=== PATIENT | female | born 1950 | race Caucasian/White ===

== ENCOUNTER 2019-03-05 15:56 | Emergency (ER) | payer MEDICARE, BC ==
[~2019-03-05] VITALS: Ht 162.6 cm; Wt 54.4 kg
--- NOTE | 2019-03-05 16:02 | Emergency Room Report ---
History of Present Illness General Chief Complaint: Altered Mental Status Source: Patient (Oscar Flores MD) Present Illness HPI Patient is a 69-year-old female who presented after increased generalized feeling bad. Patient cannot exactly state in what way she feels bad other than she feels somewhat depressed. She denies any current plan. She states that she had been having some prior lung disease and is currently a smoker. She denies any prior cardiac condition but states that she has been concerned that her heart is bad. She was able to walk approximately 3 miles earlier today.She states that she has been feeling sore all over.She states that she is disoriented (Oscar Flores MD) Allergies: Coded Allergies: UNABLE TO ASSESS (Unverified , 03/05/19) Patient History Past Medical History: see triage record Reviewed Nursing Documentation: PMH: Agreed; PSxH: Agreed (Oscar Flores MD) Nursing Documentation-PMH Past Medical History: Deferred (Oscar Flores MD) Review of Systems All Other Systems: negative except mentioned in HPI (Oscar Flores MD) Physical Exam Vital Signs Date Time Temp Pulse Resp B/P (MAP) Pulse Ox O2 Delivery O2 Flow Rate FiO2 03/05/19 15:56 98.8 100 20 106/70 (82) 99 Room Air Sp02 EP Interpretation: reviewed, normal General Appearance: normal inspection, well appearing, no apparent distress, alert, GCS 15, non-toxic, Chronically Ill Head: normocephalic, atraumatic ENT: normal ENT inspection, hearing grossly normal, normal voice Neck: normal inspection, full range of motion, supple, no bony tend Respiratory: normal inspection, lungs clear, normal breath sounds, no respiratory distress, no retraction, no wheezing Cardiovascular #1: regular rate, rhythm, no edema Gastrointestinal: normal inspection, normal bowel sounds, non tender, soft, no guarding, no hernia Genitourinary: no CVA tenderness Musculoskeletal: normal inspection, back normal, normal range of motion Neurologic: normal inspection, alert, oriented x3, responsive, occupational therapist's assistant III-XII nml as tested, speech normal Psychiatric: normal inspection, judgement/insight normal, mood/affect normal (Oscar Flores MD) Medical Decision Making Diagnostic Impression: Primary Impression: Urinary tract infection Additional Impression: Depression ER Course Patient presented for generalized weakness. Differential diagnosis include was not limited to electrolyte abnormality, rhabdomyolysis, renal insufficiency, myocardial infarction among others. Because of complexity of patient's case laboratory testing and imaging studies were ordered.Patient noted to have a mildly elevated white blood count as well as urinary infection. She is given IV Rocephin. Patient is medically cleared for psychiatric evaluation. She does not appear to have any acute medical needs at this time. Patient does states that she feels depressed. Labs Test 03/05/19 16:05 Urine Color Yellow Urine Appearance Slightly cloudy Urine pH 5 (4.5-8.0) Urine Specific [place] 1.025 (1.005-1.035) Urine Protein 2+ (NEGATIVE) Urine Glucose (UA) Negative (NEGATIVE) Urine Ketones 2+ (NEGATIVE) Urine Blood 1+ (NEGATIVE) Urine Nitrite Negative (NEGATIVE) Urine Bilirubin 1+ (NEGATIVE) Urine Ictotest Negative (NEGATIVE) Urine Urobilinogen 4 MG/DL (0.0-1.0) Urine Leukocyte Esterase 2+ (NEGATIVE) Urine RBC 2-4 /HPF (0 - 2) Urine WBC 15-20 /HPF (0 - 2) Urine Squamous Epithelial Cells Moderate /LPF (NONE/OCC) Urine Bacteria Moderate /HPF (NONE) Urine Mucus Few /LPF (NONE/OCC) Urine Opiates Screen Negative (NEGATIVE) Urine Barbiturates Screen Negative (NEGATIVE) Phencyclidine (PCP) Screen Negative (NEGATIVE) Urine Amphetamines Screen Negative (NEGATIVE) Urine Benzodiazepines Screen Negative (NEGATIVE) Urine Cocaine Screen Negative (NEGATIVE) Urine Marijuana (THC) Screen Negative (NEGATIVE) (Oscar Flores MD) ER Course Received patient at sign out, patient is medically cleared for psychiatric facility. Patient has a plan to kill herself. VSS. Patient in no acute distress (Santana Singh MD) EKG Diagnostic Results Rate: normal Rhythm: NSR ST Segments: no acute changes (Oscar Flores MD) Rhythm Strip Diag. Results EP Interpretation: yes Rhythm: NSR, no PVC's, no ectopy (Oscar Flores MD) Last Vital Signs Date Time Temp Pulse Resp B/P (MAP) Pulse Ox O2 Delivery O2 Flow Rate FiO2 03/05/19 15:56 98.8 100 20 106/70 (82) 99 Room Air Status: improved (Oscar Flores MD) Disposition: XFER TO PSYCH HOSP/UNIT Condition: Stable Oscar Flores MD Mar 05, 2019 16:02 Santana Singh MD Mar 06, 2019 08:52
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
--- NOTE | 2019-03-05 16:15 | NUR ---
ED Nurse Note: COLLECTED BLOOD/URINE THEN SENT.
[2019-03-05 16:18] VITALS: BP 104/68
[2019-03-05 16:29] LABS: APPEARANCE,URINE SLIGHTLY CLOUDY; BILIRUBIN, URINE 1+ (NEGATIVE); GLUCOSE, URINE (UA) NEGATIVE (NEGATIVE); KETONES,URINE 2+ (NEGATIVE); LEUKOCYTE ESTERASE ,URINE 2+ (NEGATIVE); NITRITE,URINE NEGATIVE (NEGATIVE); PH,URINE 5 (4.5-8.0); PROTEIN,URINE 2+ (NEGATIVE); UROBILINOGEN,URINE 4 MG/DL (0.0-1.0)
[2019-03-05 16:34] LABS: COLOR,URINE YELLOW
[2019-03-05 16:36] LABS: BASOPHILS % (AUTO) 0.6 % (0.0-2.0); EOSINOPHILS % (AUTO) 0.5 % (0.0-3.0); HEMATOCRIT 43.4 % (37.0-47.0); HEMOGLOBIN 14.9 G/DL (12.0-16.0); LYMPHOCYTES % (AUTO) 24.4 % (20.0-45.0); MEAN CORPUSCULAR VOLUME 86 FL (80-99); MONOCYTES % (AUTO) 4.7 % (1.0-10.0); NEUTROPHILS % (AUTO) 69.8 % (45.0-75.0); PLATELET COUNT 249 K/UL (150-450); RED BLOOD COUNT 5.02 M/UL (4.20-5.40); RED CELL DISTRIBUTION WIDTH 11.5 % (11.6-14.8); WHITE BLOOD COUNT 14.9 K/UL (4.8-10.8)
[2019-03-05] MEDS ORDERED: cefTRIAXone 1 GM in NS 55 ML IVPB ONE (16:45)
[2019-03-05 16:46] LABS: ANION GAP 9 mmol/L (5-15); BLOOD UREA NITROGEN 17 mg/dL (7-18); CALCIUM 10.4 MG/DL (8.5-10.1); CARBON DIOXIDE 26 MMOL/L (21-32); CHLORIDE 105 MMOL/L (98-107); CREATININE 0.8 MG/DL (0.55-1.30); POTASSIUM 4.1 MMOL/L (3.5-5.1); SODIUM 140 MMOL/L (136-145)
[2019-03-05 16:48] LABS: ALANINE AMINOTRANSFERASE 14 U/L (12-78); ALBUMIN 4.2 G/DL (3.4-5.0); ALBUMIN/GLOBULIN RATIO 1.6 (1.0-2.7); ALKALINE PHOSPHATASE 132 U/L (46-116); ASPARTATE AMINO TRANSFERASE 16 U/L (15-37); BILIRUBIN,TOTAL 0.5 MG/DL (0.2-1.0); CREATINE KINASE 82 U/L (26-308)
[2019-03-05 17:11] LABS: INR 0.9 (0.9-1.1)
--- NOTE | 2019-03-05 18:28 | NUR ---
ED Nurse Note: CARE ASSUMMED, PT VOLUNTARY TO PSYCH PER DR WATSON. PT NOT si/hi PUBLICITY EXPERT MARA AWARE OF PT AND PT CLEARED TO KEEP BELONGINGS WITH HER PER DR WATSON
--- NOTE | 2019-03-05 18:31 | NUR ---
HAND-OFF: Report given to JERO ATKINS.
--- NOTE | 2019-03-05 18:39 | NUR ---
ED Nurse Note: PT UNDRESSED AND BELONGINGS REMOVED. SUITCASE AND BELONGINGS PLACED IN UTILITY ROOM. ROOM ENVIRONMENT MADE SECURE.
--- NOTE | 2019-03-05 19:09 | NUR ---
ED Nurse Note: belongings placed in utility room and psych locker #3. battery charger [place]
--- NOTE | 2019-03-05 19:15 | NUR ---
ED Nurse Note: Received patient from MILLY Duvall. at this time patient complains of no distress. ambulated to the restroom on her own. patient was given a blanket
--- NOTE | 2019-03-05 21:35 | NUR ---
ED Nurse Note: chata was given a sandwich. complains of no distress at this time
--- NOTE | 2019-03-06 00:12 | NUR ---
ED Nurse Note: patient at no distress at this time. currently sleeping in bed
[2019-03-06 04:01] VITALS: BP 112/70
--- NOTE | 2019-03-06 04:03 | NUR ---
ED Nurse Note: Patient currently sleeping in bed
--- NOTE | 2019-03-06 07:15 | NUR ---
HAND-OFF: Report given to MILLY Sterling.
[2019-03-06 08:06] VITALS: BP 110/69
--- NOTE | 2019-03-06 08:07 | NUR ---
ED Nurse Note: vss pt awake alert speaking in full sentences . Pt ate breakfast and now sleeping will monitor . awaiting placement
[2019-03-06] MEDS ORDERED: LORazepam 1mg tab ORAL ONE (10:30)
[2019-03-06 13:41] VITALS: BP 111/72
--- NOTE | 2019-03-06 13:41 | NUR ---
REPORT GIVEN TO KEIRA AT [facility]. PATIENT IS TO BE TRANSFERD VIA [facility].ROOM [id number]
--- NOTE | 2019-03-06 13:42 | NUR ---
ED Nurse Note: pt ate lunch and now being tx'd to [facility] via ambulance [facility] unit [id number] report called in by dental detail representative Alice.
[2019-03-06 13:44] VITALS: BP 120/70
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
== END 2019-03-06 13:47 ==
LOC: EDBD 15:56 → EMR 16:31
DX: N39.0 Urinary tract infection, site not specified (principal); F32.9 Major depressive disorder, single episode, unspecified
CPT/HCPCS: 36415; 80053; 80307; 81001; 82550; 83690; 84484; 85025; 85610; 85730; 87086; 93005; 96365; 99285; J0696; J7040